=== PATIENT | male | born 1990 | race Caucasian/White ===

== ENCOUNTER 2019-02-05 16:54 | Emergency (ER) | payer BC ==
[2019-02-05] MEDS ORDERED: Ketorolac 30 MG/ML SDV IVPUSH ONE (17:16)
[2019-02-05] MEDS ORDERED: Sodium Chloride 0.9% 1,000 ML IV ONE ×2 (17:16→18:31)
[2019-02-05 18:21] LABS: BLOOD UREA NITROGEN,BUN 15 mg/dL (7.0-18.0); CARBON DIOXIDE,CO2 22.5 mmol/L (21.0-32.0); CHLORIDE,CL 103 mmol/L (98-107); GLUCOSE RANDOM 109 mg/dL (74-106); POTASSIUM,K 4.2 mmol/L (3.5-5.1); SODIUM,NA 137 mmol/L (136-148)
--- NOTE | 2019-02-05 18:27 | EDM.PDOC ---
ED HPI GENERAL MEDICAL PROBLEM - General Chief Complaint: Fever Stated Complaint: FEVER Time Seen by Provider: 02/05/19 17:11 Source of Information: Reports: Patient History Limitations: Reports: No Limitations - History of Present Illness INITIAL COMMENTS - FREE TEXT/NARRATIVE: HISTORY AND PHYSICAL: History of present illness: Patient is a 28-year-old male who presents to the emergency room with complaints of decreased appetite, abdominal pain, diaphoresis and fevers over the past several days. He states that his temperature is gotten as high as 103 while at home. He has taken multiple [id number] products without any relief. Patient denies any headache, change in vision, syncope or near syncope. Denies any chest pain, back pain, shortness of breath or cough. Denies any nausea, vomiting, diarrhea, constipation or dysuria. Has not noted any blood in urine or stool. Patient states he has no appetite, not related to nausea or vomiting. Review of systems: As per history of present illness and below otherwise all systems reviewed and negative. Past medical history: As per history of present illness and as reviewed below otherwise noncontributory. Surgical history: As per history of present illness and as reviewed below otherwise noncontributory. Social history: See social history for further information Family history: As per history of present illness and as reviewed below otherwise noncontributory. Physical exam: General: Well-developed and well-nourished 28 her old male. Alert and oriented. Patient is diaphoretic and appears mildly flushed moderately ill. HEENT: Atraumatic, normocephalic, pupils equal and reactive bilaterally, negative for conjunctival pallor or scleral icterus, mucous membranes moist, TMs normal bilaterally, throat clear, neck supple, nontender, trachea midline. No drooling or trismus noted. No meningeal signs. No hot potato voice noted. Lungs: Clear to auscultation, breath sounds equal bilaterally, chest nontender. Heart: S1S2, regular rate and rhythm without overt murmur Abdomen: Soft, nondistended, nontender. Negative for masses or hepatosplenomegaly. Negative for costovertebral tenderness. Pelvis: Stable nontender. Skin: Intact, warm, and diaphoretic. No lesions or rashes noted. Extremities: Atraumatic, moves all extremities per self without difficulty or deficits, negative for cords or calf pain. Neurovascular unremarkable. Neuro: Awake, alert, oriented. Cranial nerves II through XII unremarkable. Cerebellum unremarkable. Motor and sensory unremarkable throughout. Exam nonfocal. Notes: Lab work is unremarkable with the exception of elevated LFTs. Drug screening was positive for methamphetamine. Patient states he does drink occasionally although did have a 3 day santiago prior to today. No history of hepatitis. CT of the abdomen and pelvis shows splenomegaly but otherwise unremarkable. All diagnostics were shared with the patient. Patient denies any history of drug abuse. We discussed the need for follow-up regarding his elevated LFTs. Supportive care measures were reviewed and discussed. Voices understanding and is agreeable to plan of care. Denies any further questions or concerns at this time. Diagnostics: CBC, CMP, UA, Drug Screen, Lipase, CT abdomen/pelvis Therapeutics: IV fluids Prescription: None Impression: Elevated Transaminases Drug abuse Plan: 1. Please stop drug and alcohol abuse. 2. Follow-up with your primary care provider to have your liver enzymes reevaluated. 3. Return to the ED as needed and as discussed. Definitive disposition and diagnosis as appropriate pending reevaluation and review of above. Abdomen Pain Score (Numeric/FACES): 2 - Related Data Allergies Allergy/AdvReac Type Severity Reaction Status Date / Time Tdap Allergy Other Uncoded 02/05/19 17:04 Home Meds: Home Meds . [No Known Home Meds] 02/05/19 [History] Past Medical History - Past Health History Medical/Surgical History: Denies Medical/Surgical History - Past Surgical History HEENT Surgical History: Reports: Adenoidectomy, Tonsillectomy GI Surgical History: Reports: Appendectomy Musculoskeletal Surgical History: Reports: Arthroscopic Knee Social & Family History - Family History Family Medical History: Noncontributory - Tobacco Use Smoking Status *Q: Never Smoker - Recreational Drug Use Recreational Drug Use: No ED ROS GENERAL - Review of Systems Review Of Systems: ROS reveals no pertinent complaints other than HPI. ED EXAM, GENERAL - Physical Exam Exam: See Below (See dictation) Course - Vital Signs Last Recorded V/S: Last Vital Signs Temp 97.7 F 02/05/19 19:54 Pulse 81 02/05/19 19:54 Resp 18 02/05/19 19:54 BP 156/76 H 02/05/19 19:54 Pulse Ox 97 02/05/19 19:54 - Orders/Labs/Meds Orders: Active Orders 24 hr Category Date Time Status EKG Documentation Completion [RC] STAT Care 02/05/19 17:16 Active CULTURE BLOOD [BC] Stat Lab 02/05/19 17:42 Received CULTURE BLOOD [BC] Stat Lab 02/05/19 17:53 Received CULTURE STREP A CONFIRMATION [] Stat Lab 02/05/19 17:50 Results STREP SCRN A RAPID W CULT CONF [] Stat Lab 02/05/19 17:50 Results Blood Culture x2 Reflex Set [OM.PC] Stat Oth 02/05/19 17:16 Ordered Labs: Laboratory Tests 02/05/19 02/05/19 02/05/19 Range/Units 17:42 17:42 17:42 WBC 5.39 (4.0-11.0) K/uL RBC 5.50 (4.50-5.90) M/uL Hgb 16.7 (13.0-17.0) g/dL Hct 48.1 (38.0-50.0) % MCV 87.5 (80.0-98.0) fL MCH 30.4 (27.0-32.0) pg MCHC 34.7 (31.0-37.0) g/dL RDW Std Deviation 48.8 (28.0-62.0) fl RDW Coeff of Rosina 15 (11.0-15.0) % Plt Count 98 L (150-400) K/uL MPV 11.70 (7.40-12.00) fL Add Manual Diff YES Neutrophils % (Manual) 26 L (48.0-80.0) % Band Neutrophils % 28 % Lymphocytes % (Manual) 38 (16.0-40.0) % Monocytes % (Manual) 4 (0.0-15.0) % Eosinophils % (Manual) 4 (0.0-7.0) % Nucleated RBC % 0.0 /100WBC Absolute Seg Neuts 1.4 (1.4-5.7) Band Neutrophils # 1.5 Lymphocytes # (Manual) 2.0 (0.6-2.4) Monocytes # (Manual) 0.2 (0.0-0.8) Eosinophils # (Manual) 0.2 (0.0-0.7) Nucleated RBCs # 0 K/uL Lactate 1.0 (0.20-2.00) mmol/L Sodium 137 (136-148) mmol/L Potassium 4.2 (3.5-5.1) mmol/L Chloride 103 (98-107) mmol/L Carbon Dioxide 22.5 (21.0-32.0) mmol/L BUN 15 (7.0-18.0) mg/dL Creatinine 1.3 (0.8-1.3) mg/dL Est Cr Clr Drug Dosing 95.61 mL/min Estimated GFR (MDRD) > 60.0 ml/min Glucose 109 H (74-106) mg/dL Calcium 8.6 (8.5-10.1) mg/dL Total Bilirubin 0.5 (0.2-1.0) mg/dL AST 187 H (15-37) IU/L ALT 291 H (14-63) IU/L Alkaline Phosphatase 69 (46-116) U/L Total Protein 6.6 (6.4-8.2) g/dL Albumin 3.1 L (3.4-5.0) g/dL Globulin 3.5 (2.6-4.0) g/dL Albumin/Globulin Ratio 0.9 (0.9-1.6) Lipase (73-393) U/L Urine Color Urine Appearance Urine pH (5.0-8.0) Ur Specific Salmon (1.001-1.035) Urine Protein (NEGATIVE) mg/dL Urine Glucose (UA) (NEGATIVE) mg/dL Urine Ketones (NEGATIVE) mg/dL Urine Occult Blood (NEGATIVE) Urine Nitrite (NEGATIVE) Urine Bilirubin (NEGATIVE) Urine Ictotest Urine Urobilinogen (<2.0) EU/dL Ur Leukocyte Esterase (NEGATIVE) Urine RBC (0-2/HPF) Urine WBC (0-5/HPF) Ur Epithelial Cells (NONE-FEW) Urine Bacteria (NEGATIVE) Urine Mucus (NONE-MOD) Urine Opiates Screen (NEGATIVE) Ur Oxycodone Screen (NEGATIVE) Urine Methadone Screen (NEGATIVE) Ur Barbiturates Screen (NEGATIVE) Ur Phencyclidine Scrn (NEGATIVE) Ur Amphetamine Screen (NEGATIVE) U Methamphetamines Scrn (NEGATIVE) U Benzodiazepines Scrn (NEGATIVE) U Cocaine Metab Screen (NEGATIVE) U Marijuana (THC) Screen (NEGATIVE) 02/05/19 02/05/19 02/05/19 Range/Units 17:53 18:25 18:25 WBC (4.0-11.0) K/uL RBC (4.50-5.90) M/uL Hgb (13.0-17.0) g/dL Hct (38.0-50.0) % MCV (80.0-98.0) fL MCH (27.0-32.0) pg MCHC (31.0-37.0) g/dL RDW Std Deviation (28.0-62.0) fl RDW Coeff of Rosina (11.0-15.0) % Plt Count (150-400) K/uL MPV (7.40-12.00) fL Add Manual Diff Neutrophils % (Manual) (48.0-80.0) % Band Neutrophils % % Lymphocytes % (Manual) (16.0-40.0) % Monocytes % (Manual) (0.0-15.0) % Eosinophils % (Manual) (0.0-7.0) % Nucleated RBC % /100WBC Absolute Seg Neuts (1.4-5.7) Band Neutrophils # Lymphocytes # (Manual) (0.6-2.4) Monocytes # (Manual) (0.0-0.8) Eosinophils # (Manual) (0.0-0.7) Nucleated RBCs # K/uL Lactate (0.20-2.00) mmol/L Sodium (136-148) mmol/L Potassium (3.5-5.1) mmol/L Chloride (98-107) mmol/L Carbon Dioxide (21.0-32.0) mmol/L BUN (7.0-18.0) mg/dL Creatinine (0.8-1.3) mg/dL Est Cr Clr Drug Dosing mL/min Estimated GFR (MDRD) ml/min Glucose (74-106) mg/dL Calcium (8.5-10.1) mg/dL Total Bilirubin (0.2-1.0) mg/dL AST (15-37) IU/L ALT (14-63) IU/L Alkaline Phosphatase (46-116) U/L Total Protein (6.4-8.2) g/dL Albumin (3.4-5.0) g/dL Globulin (2.6-4.0) g/dL Albumin/Globulin Ratio (0.9-1.6) Lipase 132 (73-393) U/L Urine Color DARK YELLOW Urine Appearance CLEAR Urine pH 6.5 (5.0-8.0) Ur Specific Salmon 1.025 (1.001-1.035) Urine Protein 30 H (NEGATIVE) mg/dL Urine Glucose (UA) NEGATIVE (NEGATIVE) mg/dL Urine Ketones TRACE H (NEGATIVE) mg/dL Urine Occult Blood NEGATIVE (NEGATIVE) Urine Nitrite NEGATIVE (NEGATIVE) Urine Bilirubin MODERATE H (NEGATIVE) Urine Ictotest NEGATIVE Urine Urobilinogen 1.0 (<2.0) EU/dL Ur Leukocyte Esterase NEGATIVE (NEGATIVE) Urine RBC 0-2 (0-2/HPF) Urine WBC 0-2 (0-5/HPF) Ur Epithelial Cells RARE (NONE-FEW) Urine Bacteria FEW (NEGATIVE) Urine Mucus MODERATE (NONE-MOD) Urine Opiates Screen NEGATIVE (NEGATIVE) Ur Oxycodone Screen NEGATIVE (NEGATIVE) Urine Methadone Screen NEGATIVE (NEGATIVE) Ur Barbiturates Screen NEGATIVE (NEGATIVE) Ur Phencyclidine Scrn NEGATIVE (NEGATIVE) Ur Amphetamine Screen NEGATIVE (NEGATIVE) U Methamphetamines Scrn POSITIVE (NEGATIVE) U Benzodiazepines Scrn NEGATIVE (NEGATIVE) U Cocaine Metab Screen NEGATIVE (NEGATIVE) U Marijuana (THC) Screen NEGATIVE (NEGATIVE) Meds: Medications Discontinued Medications Generic Name Dose Route Start Last Admin Trade Name Freq PRN Reason Stop Dose Admin Sodium Chloride 1,000 mls @ 999 mls/hr 02/05/19 17:16 02/05/19 17:39 Normal Saline IV 02/05/19 18:16 999 mls/hr STAT ONE Administration Sodium Chloride 1,000 mls @ 125 mls/hr 02/05/19 18:31 02/05/19 18:39 Normal Saline IV 02/06/19 02:30 125 mls/hr STAT ONE Administration Iopamidol 100 ml 02/05/19 19:16 02/05/19 19:17 Isovue Multipack-370 (76%) IVPUSH 02/05/19 19:17 100 ml ONETIME STA Administration Ketorolac Tromethamine 30 mg 02/05/19 17:16 02/05/19 17:39 Toradol IVPUSH 02/05/19 17:17 30 mg ONETIME ONE Administration Departure - Departure Time of Disposition: 19:48 Disposition: Home, Self-Care 01 Clinical Impression: Drug abuse, Elevated transaminase level Abdominal pain Qualifiers: Abdominal location: generalized Qualified Code(s): R10.84 - Generalized abdominal pain - Discharge Information Instructions: Abdominal Pain, Adult, [id number] Referrals: PCP,Unknown [Primary Care Provider] - Forms: ED Department Discharge Additional Instructions: The following information is given to patients seen in the emergency department who are being discharged to home. This information is to outline your options for follow-up care. We provide all patients seen in our emergency department with a follow-up referral. The need for follow-up, as well as the timing and circumstances, are variable depending upon the specifics of your emergency department visit. If you don't have a primary care physician on staff, we will provide you with a referral. We always advise you to contact your personal physician following an emergency department visit to inform them of the circumstance of the visit and for follow-up with them and/or the need for any referrals to a consulting specialist. The emergency department will also refer you to a specialist when appropriate. This referral assures that you have the opportunity for follow-up care with a specialist. All of these measure are taken in an effort to provide you with optimal care, which includes your follow-up. Under all circumstances we always encourage you to contact your private physician who remains a resource for coordinating your care. When calling for follow-up care, please make the office aware that this follow-up is from your recent emergency room visit. If for any reason you are refused follow-up, please contact the [facility] Emergency Department at and asked to speak to the emergency department charge nurse. [facility] [address] [place] [address] [phone] [address] [address] 1. Please stop drug and alcohol abuse. 2. Follow-up with your primary care provider to have your liver enzymes reevaluated. 3. Return to the ED as needed and as discussed. - My Orders Last 24 Hours: My Active Orders 02/05/19 17:16 EKG Documentation Completion [RC] STAT Blood Culture x2 Reflex Set [OM.PC] Stat 02/05/19 17:42 CULTURE BLOOD [BC] Stat 02/05/19 17:50 CULTURE STREP A CONFIRMATION [RM] Stat STREP SCRN A RAPID W CULT CONF [RM] Stat 02/05/19 17:53 CULTURE BLOOD [BC] Stat - Assessment/Plan Last 24 Hours: My Active Orders 02/05/19 17:16 EKG Documentation Completion [RC] STAT Blood Culture x2 Reflex Set [OM.PC] Stat 02/05/19 17:42 CULTURE BLOOD [BC] Stat 02/05/19 17:50 CULTURE STREP A CONFIRMATION [RM] Stat STREP SCRN A RAPID W CULT CONF [RM] Stat 02/05/19 17:53 CULTURE BLOOD [BC] Stat
[2019-02-05] MEDS ORDERED: Iopamidol 755 MG/ML 500 ML Multipack Bottle IVPUSH STA (19:16)
--- NOTE | 2019-02-05 19:46 | CT ---
INDICATION: Elevated LFTs, abdominal pain TECHNIQUE: CT abdomen and pelvis acquired with IV contrast. 100 cc Isovue 370 COMPARISON: None FINDINGS: Lower chest: Unremarkable. Liver: Unremarkable. Spleen: Splenomegaly 15.5 centimeters. Pancreas: Unremarkable. Gallbladder and bile ducts: Unremarkable. Kidneys: Unremarkable. Adrenal glands: Unremarkable. GI tract: Unremarkable. Appendix is normal. Vascular structures: Unremarkable. Lymph nodes: Unremarkable. Miscellaneous: Unremarkable. No free air or significant free fluid. Pelvic Organs: Unremarkable. Bones: Unremarkable for age. IMPRESSION: No definitive findings to explain the patient`s elevated LFTs and abdominal pain. Splenomegaly. Dictated by Juan Alexander MD @ 02/05/2019 7:43:46 PM Please note that all CT scans at this facility use dose modulation, iterative reconstruction, and/or weight-based dosing when appropriate to reduce radiation dose to as low as reasonably achievable. Dictated by: Juan Alexander MD @ 02/05/2019 19:43:55 (Electronically Signed)
== END 2019-02-05 20:02 | disposition home or self-care (01) ==
LOC: MW.ED 16:54
DX: F19.10 Other psychoactive substance abuse, uncomplicated (principal); R10.84 Generalized abdominal pain; R74.0 Nonspecific elevation of levels of transaminase and lactic acid dehydrogenase [LDH]; Z88.7 Allergy status to serum and vaccine
CPT/HCPCS: 36415; 74177; 80053; 80305; 81001; 83605; 83690; 85025; 87040; 87081; 87880; 93005; 96361; 96374; 99284; J1885; J7040; Q9967